=== PATIENT | male | born 1990 | race Hispanic/Latino ===

== ENCOUNTER 2022-06-12 05:26 | Emergency (ER) | payer SELFPAY ==
[2022-06-12] MEDS ORDERED: Acetaminophen 500 MG TAB ONE (05:59)
== END 2022-06-12 08:04 | disposition home or self-care (01) ==
LOC: NAV ERS 05:26
DX: S02.2XXA Fracture of nasal bones, initial encounter for closed fracture (principal); S00.12XA Contusion of left eyelid and periocular area, initial encounter; S40.022A Contusion of left upper arm, initial encounter; F17.210 Nicotine dependence, cigarettes, uncomplicated; Y04.0XXA Assault by unarmed brawl or fight, initial encounter
CPT/HCPCS: 70450; 70486